=== PATIENT | male | born 1950 | race Caucasian/White ===

== ENCOUNTER → 2024-01-25 17:51 | Outpatient (REF) | payer MEDICARE, OTHER, SELFPAY | LOC: RAD 17:51 | PROVIDERS: ATTENDING PHYSICIAN Nurse Practitioner Family | DX: M25.552 Pain in left hip (principal); M54.50 Low back pain, unspecified | CPT/HCPCS: 72110; 73502 ==

== ENCOUNTER → 2024-07-04 17:34 | Outpatient (REF) | payer MEDICARE, OTHER, SELFPAY | LOC: RAD 17:34 | PROVIDERS: ATTENDING PHYSICIAN Physician Assistant | DX: M79.89 Other specified soft tissue disorders (principal); M79.604 Pain in right leg; R22.41 Localized swelling, mass and lump, right lower limb | CPT/HCPCS: 93971 ==